=== PATIENT | male | born 1960 ===

== ENCOUNTER 2025-04-27 16:09 | Inpatient (IN) ==
--- NOTE | 2025-04-27 16:38 | Emergency Department Note ---
Impression & Plan Symptomatic bradycardia, Atrial fibrillation, new onset, Hypomagnesemia, Hypoglycemia ED Provider Note NAME: KYLAH HAMMOND AGE: 64 SEX: M : 1960 ARRIVES VIA: Ambulance INFORMANT: Patient, ED PROVIDER(S): Tc Salamanca DO CHIEF COMPLAINT: Dizziness HPI: The patient is a 64-year-old male who presented to the emergency department for an evaluation of dizziness. The patient states he has been having issues like this intermittently over the last several months. The patient was at his eye doctor today. He started having dizziness symptoms. He was found to be bradycardic and hypotensive. He was sent to the emergency department for further evaluation. The pupils were dilated prior to the patient developing the dizziness. The patient received proparacaine Mydriacyl and phenylephrine at 1504. ROS: See above HPI for pertinent positives & negatives. A total of 10 systems reviewed and were otherwise negative. PAST MEDICAL HISTORY: See Below PAST SURGICAL HISTORY: See Below FAMILY HISTORY: See Below SOCIAL HISTORY: See Below HOME MEDICATIONS: See Below ALLERGIES: See Below VITALS: See Below PHYSICAL EXAMINATION: GENERAL: Patient is awake alert in no acute distress patient is resting comfortably and showing no signs of anxiety EYES: The conjunctivae are clear. The pupils are round and reactive. EARS, NOSE, MOUTH AND THROAT: The nose is without any evidence of any deformity. Mucous membranes are moist. Tongue is midline. NECK: The neck is nontender and supple. RESPIRATORY: Normal respiratory effort is noted there is no evidence of wheezing rhonchi or rales CARDIOVASCULAR: Bradycardic and regular heart sounds were noted to auscultation. There is no definite murmur. GASTROINTESTINAL: The abdomen is soft. Abdomen is nontender. MUSCULOSKELETAL/EXTREMITIES: There is no evidence of gross deformity full range of motion is noted in the hips and shoulders. SKIN: There is no obvious evidence of any rash. There are no petechiae, pallor or cyanosis noted. NEUROLOGIC: Patient is awake alert and oriented x3 MEDICAL DECISION MAKING: The patient is a 64-year-old male who presented to the emergency department directly from his eye doctor's office for an evaluation of bradycardia and hypotension. The patient was found to be in atrial fibrillation. This would be a new diagnosis for the patient. I discussed the patient's laboratory and radiographic studies with him. He was treated with a small fluid bolus. He was reevaluated multiple times. I discussed his condition with the on-call [facility] hospitalist. I am concerned about the presence of the atrial fibrillation. He may require further workup as well as new medications started. The patient was agreeable with the plan. Triage Nursing notes reviewed. Prior medical records reviewed Vital Signs: reviewed and remarkable for no significant abnormalities Differential diagnosis: Benign positional vertigo, dehydration, hypovolemia, anemia, tumor, infection, hypoglycemia, electrolyte abnormalities, cardiac sources, intracerebral event, toxicologic, neurologic, as well as other pathologies. ER treatment provided: See below Diagnostics interpreted by me: ECG: EKG was obtained in the emergency department. My interpretation is atrial fibrillation at 63 bpm. There were no PVCs noted. There is no acute ST segment abnormalities noted. Nonspecific intraventricular conduction delay was noted. Cardiac Monitoring: An order was placed for continuous cardiac monitoring. The monitor shows a rate of 71 bpm with atrial fibrillation. Laboratory studies: As stated above and show below. Imaging studies: See below. Radiographic imaging was reviewed by myself Consultation(s): I discussed this case with Dr. Storey [facility]. Past Med/Surg History Problem List (Updated 04/27/25 @ 21:19 by Katia Browning PA-C) CARMEN (acute kidney injury) History of orthostatic hypotension Dizziness Lightheadedness Hypoglycemia (Acute) Hypomagnesemia (Acute) Atrial fibrillation, new onset (Acute) Symptomatic bradycardia (Acute) Medical History High cholesterol GERD (gastroesophageal reflux disease) Coronary artery disease Type 2 diabetes mellitus Hypertension Social History Smoking Status: Former smoker Preferred Language: Turkmen Feels Safe at Home: Yes Allergies Allergies Allergy/AdvReac Type Severity Reaction Status Date / Time peanut AdvReac Intermediate DIARRHEA--PEANUT Verified 04/27/25 18:29 CONTAINING DRUGS INCLUDED Home Meds Home Medications Medication Instructions Recorded Confirmed acetaminophen 500 mg tablet 500 mg PO QID PRN PAIN/FEVER 04/27/25 04/27/25 (Tylenol Extra Strength) albuterol sulfate 90 mcg/actuation 2 puff inhalation Q6H PRN 04/27/25 04/27/25 aerosol inhaler Shortness Of Breath Or Wheezing amlodipine 5 mg tablet 5 mg PO QAM 04/27/25 04/27/25 aspirin 81 mg tablet,delayed 81 mg PO DAILY 04/27/25 04/27/25 release atorvastatin 80 mg tablet 80 mg PO QAM 04/27/25 04/27/25 bupropion HCl 100 mg tablet,12 hr 100 mg PO BID 04/27/25 04/27/25 sustained-release cholecalciferol (vitamin D3) 50 50 mcg PO DAILY 04/27/25 04/27/25 mcg (2,000 unit) capsule (Vitamin D3) duloxetine 30 mg capsule,delayed 30 mg PO BID 04/27/25 04/27/25 release ferrous sulfate 325 mg (65 mg 325 mg PO Q OTHER DAY 04/27/25 04/27/25 iron) tablet gabapentin 300 mg capsule See Rx Instructions .Route .COMPLEX 04/27/25 04/27/25 insulin aspart U-100 100 unit/mL 8 unit subcut TIDM 04/27/25 04/27/25 (3 mL) subcutaneous pen insulin glargine 100 unit/mL (3 22 unit subcut QAM 04/27/25 04/27/25 mL) subcutaneous pen (Lantus Solostar U-100 Insulin) levothyroxine 25 mcg tablet 25 mcg PO DAILYBB 04/27/25 04/27/25 losartan 50 mg tablet 25 mg PO QAM 04/27/25 04/27/25 magnesium oxide 500 mg PO DAILY 04/27/25 04/27/25 metformin 500 mg tablet,extended 1,000 mg PO BID 04/27/25 04/27/25 release 24 hr multivitamin 1 tab PO DAILY 04/27/25 04/27/25 naphazo HCl 0.025 %-hyprome 0.2 1 drp OPB DIRECTED PRN Dry Eyes 04/27/25 04/27/25 %-ps 80 0.5 %-Zn sulf 0.25 % eye drops (Clear Eyes Complete) nitroglycerin 0.4 mg sublingual 0.4 mg sublingual DIRECTED PRN 04/27/25 04/27/25 tablet (Nitrostat) Chest Pain omeprazole 20 mg capsule,delayed 20 mg PO QAM 04/27/25 04/27/25 release tamsulosin 0.4 mg capsule 0.8 mg PO QAM 04/27/25 04/27/25 Results & Data (ED) Vital Signs Vital Signs - 24 hr 04/27/25 16:30 04/27/25 16:31 04/27/25 16:31 Temperature 36.7 C Temperature Source Oral Pulse Rate 73 55 L Respiratory Rate 12 16 Respiratory Depth Normal Blood Pressure 114/62 114/62 Blood Pressure Mean 75 79 Pulse Oximetry 97 98 98 Oxygen Delivery Method Room Air Room Air Oxygen Flow Rate 0 Sepsis Recent Fever Within 48 Hours No Sepsis New/Unexplained Change in Mental Status N/A Sepsis Action Taken by Nursing No Action Required 04/27/25 16:35 04/27/25 17:00 04/27/25 18:00 Temperature Temperature Source Pulse Rate 58 L 65 76 Respiratory Rate 22 Respiratory Depth Blood Pressure 131/72 128/76 Blood Pressure Mean 98 105 Pulse Oximetry 99 Oxygen Delivery Method Oxygen Flow Rate Sepsis Recent Fever Within 48 Hours Sepsis New/Unexplained Change in Mental Status Sepsis Action Taken by Nursing 04/27/25 18:30 04/27/25 19:00 04/27/25 19:30 Temperature Temperature Source Pulse Rate 75 83 82 Respiratory Rate 15 15 19 Respiratory Depth Blood Pressure 142/90 H 137/78 148/84 H Blood Pressure Mean 107 111 97 Pulse Oximetry 99 97 97 Oxygen Delivery Method Oxygen Flow Rate Sepsis Recent Fever Within 48 Hours Sepsis New/Unexplained Change in Mental Status Sepsis Action Taken by Nursing 04/27/25 20:30 04/27/25 20:40 Temperature Temperature Source Pulse Rate 70 71 Respiratory Rate 18 Respiratory Depth Blood Pressure 112/63 Blood Pressure Mean 96 Pulse Oximetry 97 Oxygen Delivery Method Oxygen Flow Rate Sepsis Recent Fever Within 48 Hours Sepsis New/Unexplained Change in Mental Status Sepsis Action Taken by [facility] Medications Current Medication List: was personally reviewed by me Laboratory Data Attestation: I reviewed the patient's lab results. 04/27/25 16:22 04/27/25 16:22 Lab Results 04/27/25 04/27/25 04/27/25 Range/Units 16:22 17:42 20:14 WBC 6.93 (4.8-10.8) K/ul RBC 4.03 L (4.70-6.10) M/uL Hgb 11.4 L (14.0-18.0) g/dl Hct 35.7 L (42.0-52.0) % MCV 88.6 (80.0-100.0) fL MCH 28.3 (25.0-34.0) pg MCHC 31.9 L (32.0-36.0) g/dL RDW Std Deviation 45.8 (36.4-46.3) fL RDW Coeff of Hodan 14.2 (11.5-14.5) % Plt Count 203 (130-400) K/uL MPV 10.1 (9.4-12.4) fL Immature Gran % (Auto) 0.1 % Neut % (Auto) 70.1 % Lymph % (Auto) 19.9 % [place] % (Auto) 7.6 % Eos % (Auto) 1.6 % Baso % (Auto) 0.7 % Neut # (Auto) 4.85 (1.40-6.50) K/uL Lymph # (Auto) 1.38 (1.20-3.40) K/uL [place] # (Auto) 0.53 (0.11-0.59) K/uL Eos # (Auto) 0.11 (0.00-0.50) K/uL Baso # (Auto) 0.05 (0.00-0.20) K/uL Immature Gran # (Auto) 0.01 (0.01-0.20) K/uL PT 11.2 (9.0-12.0) Seconds INR 1.0 (0.9-1.1) APTT 27 (21-31) Seconds PTT Ratio 1.0 Sodium 137 (136-145) mmol/L Potassium 5.1 (3.5-5.1) mmol/L Chloride 104 (98-107) mmol/L Carbon Dioxide 26 (21-32) mmol/L Anion Gap 7 (3-11) BUN 31 H (6-23) mg/dl Creatinine 1.61 H (0.6-1.4) mg/dl Est Cr Clr Drug Dosing 59.5 ml/min eGFR 47.16 BUN/Creatinine Ratio 19.3 (10-20) Glucose 80 (70-99(Fasting)) mg/dl POC Glucose 59 L* (70-99) mg/dl Calcium 8.4 L (8.6-10.3) mg/dl Magnesium 1.1 L (1.7-2.4) mg/dl Total Bilirubin 0.4 (0.2-1.0) mg/dl AST 10 L (13-39) U/L ALT 9 (7-52) U/L Alkaline Phosphatase 57 (34-104) U/L Troponin I High Sens 11.0 (0-20) pg/ml Total Protein 6.2 (6.0-8.3) gm/dl Albumin 4.0 (3.4-5.0) gm/dl Globulin 2.2 L (2.5-4.0) gm/dl Albumin/Globulin Ratio 1.8 (0.9-2) TSH 3.291 (0.300-4.500) uIu/ml Urine Color Yellow Urine Appearance Clear (Clear) Urine pH 5.5 (4.5-7.5) Ur Specific [place] 1.008 (1.000-1.030) Urine Protein Negative (Negative) Urine Glucose (UA) Negative (Negative) Urine Ketones Negative (Negative) Urine Blood Negative (Negative) Urine Nitrite Negative (Negative) Urine Bilirubin Negative (Negative) Urine Urobilinogen Negative (Negative) Ur Leukocyte Esterase Negative (Negative) Urine Comment Lyme Disease Screen Negative (Negative) 04/27/25 Range/Units 20:25 WBC (4.8-10.8) K/ul RBC (4.70-6.10) M/uL Hgb (14.0-18.0) g/dl Hct (42.0-52.0) % MCV (80.0-100.0) fL MCH (25.0-34.0) pg MCHC (32.0-36.0) g/dL RDW Std Deviation (36.4-46.3) fL RDW Coeff of Hodan (11.5-14.5) % Plt Count (130-400) K/uL MPV (9.4-12.4) fL Immature Gran % (Auto) % Neut % (Auto) % Lymph % (Auto) % [place] % (Auto) % Eos % (Auto) % Baso % (Auto) % Neut # (Auto) (1.40-6.50) K/uL Lymph # (Auto) (1.20-3.40) K/uL [place] # (Auto) (0.11-0.59) K/uL Eos # (Auto) (0.00-0.50) K/uL Baso # (Auto) (0.00-0.20) K/uL Immature Gran # (Auto) (0.01-0.20) K/uL PT (9.0-12.0) Seconds INR (0.9-1.1) APTT (21-31) Seconds PTT Ratio Sodium (136-145) mmol/L Potassium (3.5-5.1) mmol/L Chloride (98-107) mmol/L Carbon Dioxide (21-32) mmol/L Anion Gap (3-11) BUN (6-23) mg/dl Creatinine (0.6-1.4) mg/dl Est Cr Clr Drug Dosing ml/min eGFR BUN/Creatinine Ratio (10-20) Glucose (70-99(Fasting)) mg/dl POC Glucose 105 H (70-99) mg/dl Calcium (8.6-10.3) mg/dl Magnesium (1.7-2.4) mg/dl Total Bilirubin (0.2-1.0) mg/dl AST (13-39) U/L ALT (7-52) U/L Alkaline Phosphatase (34-104) U/L Troponin I High Sens (0-20) pg/ml Total Protein (6.0-8.3) gm/dl Albumin (3.4-5.0) gm/dl Globulin (2.5-4.0) gm/dl Albumin/Globulin Ratio (0.9-2) TSH (0.300-4.500) uIu/ml Urine Color Urine Appearance (Clear) Urine pH (4.5-7.5) Ur Specific [place] (1.000-1.030) Urine Protein (Negative) Urine Glucose (UA) (Negative) Urine Ketones (Negative) Urine Blood (Negative) Urine Nitrite (Negative) Urine Bilirubin (Negative) Urine Urobilinogen (Negative) Ur Leukocyte Esterase (Negative) Urine Comment Lyme Disease Screen (Negative) Administered Medications Dextrose/Sodium Chloride (D5w And Nss) 1,000 mls @ 80 mls/hr IV .[id number] GARO Stop: 04/30/25 18:29 Last Admin: 04/27/25 19:00 Dose: 80 mls/hr Documented By: ANT Discontinued Medications Magnesium Sulfate/Dextrose (Magnesium Sulfate / D5w) 1 gm in 100 mls @ 100 mls/hr IV Q1H GARO Stop: 04/27/25 19:42 Last Infusion: 04/27/25 19:54 Dose: Infused Documented By: Admin: 04/27/25 18:48 Dose: 100 mls/hr Documented By: Infusion: 04/27/25 18:48 Dose: Infused Documented By: Admin: 04/27/25 17:52 Dose: 100 mls/hr Documented By: FRANKLYN Sodium Chloride (Nss) 500 mls @ 999 mls/hr IV .Q31M ONE Stop: 04/27/25 18:13 Last Infusion: 04/27/25 18:20 Dose: Infused Documented By: Admin: 04/27/25 17:52 Dose: 999 mls/hr Documented By: FRANKLYN Magnesium Oxide (Magnesium Oxide 400 Mg Tab) 400 mg PO NOW STA Stop: 04/27/25 18:16 Last Admin: 04/27/25 18:48 Dose: 400 mg Documented By: ANT Imaging Data Attestation: I personally reviewed and interpreted this imaging study as follows: My Impression: 1 view chest x-ray was obtained in the emergency department. My interpretation is no free air or definite infiltrate, final report below. Radiologist's Impression: Chest X-Ray 04/27/25 16:14 Clinical History: Chest pain Technique: A frontal view of the chest was obtained Findings: There are no confluent pulmonary infiltrates. The heart size is within normal limits. No pleural effusion or pneumothorax is seen. There is no definite pulmonary nodule. No fracture is noted. Sternal wires are present Impression: No active disease Electronically signed by Rory Castrejon 04-27-2025 4:[address] 04/27/25 19:18 Exam(s): CT HEAD Without Contrast EXAM: CT Head Without Intravenous Contrast CLINICAL HISTORY: Reason for exam: Recent head strike, r/o bleed prior to starting AC. TECHNIQUE: Axial computed tomography images of the head/brain without intravenous contrast. CTDI is 36.18 mGy and DLP is 624.41 mGy-cm. Automated exposure control was utilized for the study. A dose lowering technique was utilized adhering to the principles of ALARA. COMPARISON: No relevant prior studies available. FINDINGS: Brain: No hemorrhage, extra-axial fluid collection, mass effect, or edema. Ventricles: Unremarkable. Bones/joints: Unremarkable. No fracture. Soft tissues: Unremarkable. Sinuses: No acute sinusitis. Mastoid air cells: Unremarkable as visualized. IMPRESSION: 1. No acute intracranial abnormality. Electronically signed by: Thanh Turpin MD 04/27/25 21:07 PM Discharge Plan Visit Data Chief Complaint: Cardiac Assessment ED Provider: Tc Salamanca Discharge Problem: Symptomatic bradycardia, Atrial fibrillation, new onset, Hypomagnesemia, Hypoglycemia Patient Disposition: Being Evaluated by Hospitalist Condition: Fair Discharge Instructions Interventions: ED Discharge Assessment Last Done: 04/27/25 21:42
[2025-04-27 16:42] LABS: Hematocrit (blood only) 35.7 % (42.0-52.0); Hemoglobin 11.4 g/dl (14.0-18.0); Immature Granulocytes # (auto) 0.01 K/uL (0.01-0.20); Immature Granulocytes % (auto) 0.1 %; Mean Corpuscular Hemoglobin 28.3 pg (25.0-34.0); Mean Corpuscular Volume 88.6 fL (80.0-100.0); Platelet Count 203 K/uL (130-400); RDW Standard Deviation 45.8 fL (36.4-46.3); Red Blood Count 4.03 M/uL (4.70-6.10); White Blood Count 6.93 K/ul (4.8-10.8)
--- NOTE | 2025-04-27 16:57 | XRay Report ---
Clinical History: Chest pain Technique: A frontal view of the chest was obtained Findings: There are no confluent pulmonary infiltrates. The heart size is within normal limits. No pleural effusion or pneumothorax is seen. There is no definite pulmonary nodule. No fracture is noted. Sternal wires are present Impression: No active disease Electronically signed by Rory Castrejon 04-27-2025 4:55 PM
[2025-04-27 16:58] LABS: Alanine Aminotransferase 9.0 U/L (7-52); Albumin Globulin Ratio 1.8 (0.9-2); Alkaline Phosphatase 57.0 U/L (34-104); Anion Gap 7.0 (3-11); Bilirubin,Total 0.4 mg/dl (0.2-1.0); Blood Urea Nitrogen 31.0 mg/dl (6-23); Calcium 8.4 mg/dl (8.6-10.3); Carbon Dioxide 26.0 mmol/L (21-32); Chloride 104.0 mmol/L (98-107); Creatinine Clr Calc Pharmacy 59.5 ml/min; Globulin 2.2 gm/dl (2.5-4.0); Glucose 80.0 mg/dl (70-99(Fasting)); Magnesium 1.1 mg/dl (1.7-2.4); Potassium 5.1 mmol/L (3.5-5.1); Sodium 137.0 mmol/L (136-145); Total Protein 6.2 gm/dl (6.0-8.3)
[2025-04-27 17:14] LABS: Thyroid Stimulating Hormone 3.291 uIu/ml (0.300-4.500)
[2025-04-27 17:15] LABS: INR 1.0 (0.9-1.1); Partial Thromboplastin Time 27 Seconds (21-31); Prothrombin Time 11.2 Seconds (9.0-12.0)
[2025-04-27] MEDS: SODIUM CHLORIDE 0.9% 500 ML IV ONE (17:52)
[2025-04-27] MEDS: MAGNESIUM SULFATE / D5W 1 GM/100 ML BAG IV SCH (17:52)
--- NOTE | 2025-04-27 18:32 | History & Physical Report ---
Date of Service April 27, 2025 Assessment & Plan (1) Lightheadedness: (2) Dizziness: (3) History of orthostatic hypotension: (4) Atrial fibrillation, new onset: (5) CARMEN (acute kidney injury): (6) Hypomagnesemia: (7) Hypoglycemia: Plan Patient is a 64-year-old male with past medical history significant for severe CAD s/p CABG x 5 (Rangel-LAD, Ao-OM1-OM2, Ao-PDA, Ao-Ramus) in March 2017, HLD, HTN, orthostatic hypotension, symptomatic bradycardia, sinus node dysfunction, obesity, type II DM with diabetic nephropathy, diabetic proliferative retinopathy and macular edema both eyes, hypothyroidism, GERD, BPH, cerebral atrophy, depression/CHANTEL, history of osteomyelitis, history of left lesser toe amputation and other problems as outlined below who presented to the ED via EMS with complaint of lightheadedness and dizziness after his BP was discovered to be 86/52 during his outpatient ophthalmology appointment earlier today. BP checked at the office: 86/52 in the R arm, 73/55 in the L arm. BP improving to 140s/80s in ED s/p IVF; lightheadedness/dizziness also improving. Notable history of orthostatic hypotension. Follows with [facility]; outlined BP goal <150/90 per cards visit in 04/2024. #Lightheadedness and dizziness --> notably upon standing #History of orthostatic hypotension Took BP meds this AM including losartan 25mg and amlodipine 5mg ? if sx primarily stemming from/result of orthostasis Unknown how long pt has been in afib --> may be contributing to sx as well Check orthostatics, TTE pending -Could also consider b/l carotid doppler US given significant CAD hx --> will hold off for now Hold home antihypertensives for now; routine BP monitoring Fall precautions #New-onset atrial fibrillation Remains rate-controlled; [id number] score = [address] obtained prior to beginning IV heparin given recent fall w/ head strike 2wks ago --> head CT negative Will initiate IV low-dose heparin drip for now Monitor on telemetry; PRN IV Lopressor 5mg Q4H for HR>110, TTE pending as per above Appreciate cardiology consult #CARMEN on suspected underlying CKD stage II/III #Diabetic nephropathy Cr 1.61 on admission, eGFR 47 Baseline Cr 1.3-1.4 since 05/2024 per OP chart review Suspect related to poor po intake, recent diarrheal illness (resolved a few days ago) IVF onboard --> continue to monitor; if no improvement, consider nephro consult #Hypomagnesemia Mag 1.1 upon arrival Repleted via 2 bags IV mag in ED; oral supplementation started as well Repeat mag level pending --> continue to monitor, replete PRN #Hypoglycemia #DM type II BSG 59 upon arrival to ED ? could have been contributing to sx as well BSG improving w/ IV D5w/NSS --> continue to closely monitor Hold home regimen; basal/bolus reg while inpt Appreciate glycemic pharm consult for assistance w/ insulin management BSG checks ACH[employer] school vocational educator consult, re: review BSG monitoring, ? changes to insulin reg given hypoglycemic event/diet changes Hgb A1c 6% 4mo ago --> update in AM #HLD #CAD s/p CABG x 5 (Rangel-LAD, Ao-OM1-OM2, Ao-PDA, Ao-Ramus) in March 2017 Continue statin, ASA #Depression Continue Wellbutrin, Cymbalta #Chronic anemia Baseline Hgb 10-12; Hgb stable on admission Continue to monitor #Hypothyroidism TSH WNL Continue levothyroxine #GERD Continue PPI #BPH Continue Flomax DVT Prophylaxis: IV Heparin Disposition: Admit to PCU Patient seen in collaboration with Dr. Storey. Please see addendum. I spent a total of 68 minutes coordinating, documenting, and providing care for this patient excluding time spent in the performance of separately billed services or time spent by another provider/QHP. This included personally reviewing all current laboratories and imaging studies, medical reconciliation, outpatient chart review and discussion with specialists. This chart was completed in part utilizing Speech Voice Recognition Software. Grammatical errors, random word insertions, pronoun errors, and incomplete sentences are an occasional consequence of this system due to software limitations, ambient noise, and hardware issues. Any formal questions or concerns about the content, text, or information contained within the body of this dictation should be directly addressed to the provider for clarification. History of Present Illness Chief Complaint: Lightheadedness/dizziness, hypotension Primary Care Provider: Sha Andersen MD Patient is a 64-year-old male with past medical history significant for severe CAD s/p CABG x 5 (Rangel-LAD, Ao-OM1-OM2, Ao-PDA, Ao-Ramus) in March 2017, HLD, HTN, orthostatic hypotension, symptomatic bradycardia, sinus node dysfunction, obesity, type II DM with diabetic nephropathy, diabetic proliferative retinopathy and macular edema both eyes, hypothyroidism, chronic rhinitis, mucous retention cyst of maxillary sinus, GERD, BPH, cerebral atrophy, history of left lesser toe amputation, depression/CHANTEL, history of osteomyelitis and other problems as outlined below who presented to the ED via EMS with complaint of lightheadedness and dizziness after his BP was discovered to be 86/52 during his outpatient ophthalmology appointment earlier today. History obtained from the patient, discussion with ED provider and associated chart review. Patient seen at bedside with Dr. Storey. Patient endorses feeling well up until this afternoon at his ophthalmology appointment. He describes feeling lightheaded and dizzy upon getting out of his car at the appointment. He had his BP checked at the office and it was notably low at 86/52 in the right arm and 73/55 in the left arm. He does mention proceeding with his eye exam and having his pupils dilated; however, his symptoms did not resolve therefore a call was placed to his PCP's office whom subsequently referred him to the ED. States his lightheadedness and dizziness is improving with rest in the ED. He admits to actually experiencing some lightheadedness and dizziness for the past 2 days, worse with standing. He reports a fall approximately 2 weeks ago where he struck his head off of a stone flower bed. No reported LOC; states he tripped over something in his yard. Patient was not evaluated in any medical facilities following this event. He reports having some diarrhea a few days ago however this is now resolved. Denies any cough, congestion, fevers, SOB, chest pain, abdominal pain or urinary/bowel habit changes. He mentions he typically does not eat much in the morning or afternoon and that the majority of his heavier meals are later in the evening. He administered his long-acting insulin this morning. Admits to not taking any short-acting insulin today. States he only ate a couple crackers prior to his ophthalmology appointment and nothing else today. He took all of his medications this morning, including his antihypertensives - losartan 25mg and amlodipine 5mg. Follows with [facility] cardiology - primary mobility architect manager is Dr. Quijano. Significant history of CAD s/p CABG x 5. Also history of orthostatic hypotension previously requiring frequent changes in his antihypertensive regimen. Allergies Allergy/AdvReac Type Severity Reaction Status Date / Time peanut AdvReac Intermediate DIARRHEA--PEANUT Verified 04/27/25 18:29 CONTAINING DRUGS INCLUDED Home Medications Medication Instructions Recorded Confirmed Type acetaminophen 500 mg tablet 500 mg PO QID PRN PAIN/FEVER 04/27/25 04/27/25 History (Tylenol Extra Strength) albuterol sulfate 90 mcg/actuation 2 puff inhalation Q6H PRN 04/27/25 04/27/25 History aerosol inhaler Shortness Of Breath Or Wheezing amlodipine 5 mg tablet 5 mg PO QAM 04/27/25 04/27/25 History aspirin 81 mg tablet,delayed 81 mg PO DAILY 04/27/25 04/27/25 History release atorvastatin 80 mg tablet 80 mg PO QAM 04/27/25 04/27/25 History bupropion HCl 100 mg tablet,12 hr 100 mg PO BID 04/27/25 04/27/25 History sustained-release cholecalciferol (vitamin D3) 50 50 mcg PO DAILY 04/27/25 04/27/25 History mcg (2,000 unit) capsule (Vitamin D3) duloxetine 30 mg capsule,delayed 30 mg PO BID 04/27/25 04/27/25 History release ferrous sulfate 325 mg (65 mg 325 mg PO Q OTHER DAY 04/27/25 04/27/25 History iron) tablet gabapentin 300 mg capsule See Rx Instructions .Route .COMPLEX 04/27/25 04/27/25 History insulin aspart U-100 100 unit/mL 8 unit subcut TIDM 04/27/25 04/27/25 History (3 mL) subcutaneous pen insulin glargine 100 unit/mL (3 22 unit subcut QAM 04/27/25 04/27/25 History mL) subcutaneous pen (Lantus Solostar U-100 Insulin) levothyroxine 25 mcg tablet 25 mcg PO DAILYBB 04/27/25 04/27/25 History losartan 50 mg tablet 25 mg PO QAM 04/27/25 04/27/25 History magnesium oxide 500 mg PO DAILY 04/27/25 04/27/25 History metformin 500 mg tablet,extended 1,000 mg PO BID 04/27/25 04/27/25 History release 24 hr multivitamin 1 tab PO DAILY 04/27/25 04/27/25 History naphazo HCl 0.025 %-hyprome 0.2 1 drp OPB DIRECTED PRN Dry Eyes 04/27/25 04/27/25 History %-ps 80 0.5 %-Zn sulf 0.25 % eye drops (Clear Eyes Complete) nitroglycerin 0.4 mg sublingual 0.4 mg sublingual DIRECTED PRN 04/27/25 04/27/25 History tablet (Nitrostat) Chest Pain omeprazole 20 mg capsule,delayed 20 mg PO QAM 04/27/25 04/27/25 History release tamsulosin 0.4 mg capsule 0.8 mg PO QAM 04/27/25 04/27/25 History Past Med/Surg History Problem List (Updated 04/27/25 @ 21:19 by Katia Browning PA-C) CARMEN (acute kidney injury) History of orthostatic hypotension Dizziness Lightheadedness Hypoglycemia (Acute) Hypomagnesemia (Acute) Atrial fibrillation, new onset (Acute) Symptomatic bradycardia (Acute) Medical History High cholesterol GERD (gastroesophageal reflux disease) Coronary artery disease Type 2 diabetes mellitus Hypertension Social History Smoking Status: Former smoker Second Hand Exposure: No; Do You Dip or Chew Tobacco: No; Tobacco Cessation Education Requested by Patient: No Hx Alcohol Use: No Hx Substance Use: No Preferred Language: Sami Doper Operator Required: No Beliefs That Will Affect Care: None Current Living Situation: Alone Other Information That Helps Us Care for You: No Feels Safe at Home: Yes Assistive Devices: None Review of Systems Review of Systems: At least ten systems reviewed and negative, except as noted in the HPI. Physical Exam Physical Exam: Please refer to Dr. Storey's addendum for physical examination findings. Results & Data Results & Data Vital Signs (Past 12 Hours) Vital Signs Temp Pulse Resp BP Pulse Ox O2 Del Method O2 Flow Rate 04/27/25 16:35 58 L 04/27/25 16:31 98 Room Air 0 04/27/25 16:31 36.7 C 55 L 16 114/62 98 Room Air 04/27/25 16:30 73 12 114/62 97 Laboratory Results Short CBC 04/27/25 Range/Units 16:22 WBC 6.93 (4.8-10.8) K/ul Hgb 11.4 L (14.0-18.0) g/dl Hct 35.7 L (42.0-52.0) % Plt Count 203 (130-400) K/uL BMP 04/27/25 16:22 Sodium 137 Potassium 5.1 Chloride 104 Carbon Dioxide 26 BUN 31 H Creatinine 1.61 H Glucose 80 Calcium 8.4 L Liver Function 04/27/25 Range/Units 16:22 Total Bilirubin 0.4 (0.2-1.0) mg/dl AST 10 L (13-39) U/L ALT 9 (7-52) U/L Alkaline Phosphatase 57 (34-104) U/L Albumin 4.0 (3.4-5.0) gm/dl Diagnostic Findings Chest X-Ray 04/27/25 16:14 Clinical History: Chest pain Technique: A frontal view of the chest was obtained Findings: There are no confluent pulmonary infiltrates. The heart size is within normal limits. No pleural effusion or pneumothorax is seen. There is no definite pulmonary nodule. No fracture is noted. Sternal wires are present Impression: No active disease Electronically signed by Rory Castrejon 04-27-2025 4:55 PM Medications Administered Magnesium Sulfate/Dextrose (Magnesium Sulfate / D5w) 1 gm in 100 mls @ 100 mls/hr IV Q1H GARO Stop: 04/27/25 19:42 Last Admin: 04/27/25 17:52 Dose: 100 mls/hr Documented By: FRANKLYN Discontinued Medications Sodium Chloride (Nss) 500 mls @ 999 mls/hr IV .Q31M ONE Stop: 04/27/25 18:13 Last Infusion: 04/27/25 18:20 Dose: Infused Documented By: Admin: 04/27/25 17:52 Dose: 999 mls/hr Documented By: FRANKLYN Code Status & VTE Plan Code Status FULL CODE Supervising Physician Co-Signing Physician Notes Attending Addendum: Case reviewed with the advanced practitioner. I have personally performed a history and physical examination on the patient. I have reviewed the advanced practitioner's documentation on the date of service referenced in note, and I agree with, and take responsibility for the plan of care. please refer to her notes for full details patient seen and examined, records reviewed by myself as well on exam, patient seen resting in bed, comfortable, not in distress reports dizziness when upright otherwise, no chest pain, palpitations, shortness of breath, focal neuro symptoms no fever/chills no other symptoms VS noted and reviewed oriented x3, not in distress, speaks in sentences with no effort nor accessory muscle use normal rate, irregularly regular rhythm, no murmurs clear breath sounds bilaterally non distended, soft, nontender no bipedal edema, erythema, warmth no neuro deficits all labs, imaging noted and reviewed ASSESSMENT AND PLAN> NEW ONSET ATRIAL FIBRILLATION HISTORY OF CAD, CABG HISTORY OF SYMPTOMATIC BRADYCARDIA EKG Afib HR 80s check CT head in light of recent fall, if negative for bleed, start IV Heparin (CHADSVASC score elevated) hold off on Beta tito as HR controlled Cardiology consulted EPISODE OF HYPOTENSION history of orthostasis patient on the dry side, Crea mildly elevated IV fluids Ortho VS other diagnoses and plan of care as per advanced practitioner's notes I spent a total of 35 minutes coordinating, documenting, and providing care for this patient, excluding time spent in the performance of separately billed services or time spent by another provider/QHP. Johnson Storey MD
[2025-04-27] MEDS: MAGNESIUM OXIDE 400 MG TAB PO STA (18:48)
[2025-04-27] MEDS: D5W AND NSS 1,000 ML IV SCH (19:00)
[2025-04-27 20:35] LABS: Appearance Urine Clear (Clear); Glucose Urine UA Negative (Negative)
[2025-04-27] MEDS ORDERED: GLUCOSE 40% GEL 15 GM TUBE PO PRN (20:49)
[2025-04-27] MEDS ORDERED: PHARMACY GLYCEMIC MGMT CONSULT PRN (20:49)
[2025-04-27] MEDS ORDERED: GLUCOSE 10 TAB/TUBE PO PRN (20:49)
[2025-04-27] MEDS ORDERED: DEXTROSE 50% 50 ML SYRINGE IV PRN (20:49)
[2025-04-27] MEDS ORDERED: CARBOHYDRATES FOR HYPOGLYCEMIA PO PRN (20:49)
[2025-04-27] MEDS ORDERED: GLUCAGON FOR INJ 1 MG VIAL SQ PRN (20:49)
--- NOTE | 2025-04-27 21:08 | CT Scan Report ---
Exam(s): CT HEAD Without Contrast EXAM: CT Head Without Intravenous Contrast CLINICAL HISTORY: Reason for exam: Recent head strike, r/o bleed prior to starting AC. TECHNIQUE: Axial computed tomography images of the head/brain without intravenous contrast. CTDI is 36.18 mGy and DLP is 624.41 mGy-cm. Automated exposure control was utilized for the study. A dose lowering technique was utilized adhering to the principles of ALARA. COMPARISON: No relevant prior studies available. FINDINGS: Brain: No hemorrhage, extra-axial fluid collection, mass effect, or edema. Ventricles: Unremarkable. Bones/joints: Unremarkable. No fracture. Soft tissues: Unremarkable. Sinuses: No acute sinusitis. Mastoid air cells: Unremarkable as visualized. IMPRESSION: 1. No acute intracranial abnormality. Electronically signed by: Thanh Turpin MD 04/27/25 21:07 PM
[2025-04-27] MEDS ORDERED: METOPROLOL TARTRATE 1 MG/ML VIAL IV PRN (21:25)
[2025-04-27] MEDS ORDERED: MAGNESIUM HYDROXIDE SUSP 30 ML UDC PO PRN (21:55)
[2025-04-27] MEDS ORDERED: ONDANSETRON INJ 2 MG/ML 2 ML VIAL IV PRN (21:55)
[2025-04-27] MEDS ORDERED: POLYETHYLENE (MIRALAX) 17 GM PACK PO PRN (21:55)
[2025-04-27] MEDS: HEPARIN 25000 UNIT/500 ML D5W 25,000 UNITS/500 ML BAG IV SCH (22:33)
[2025-04-27] MEDS: INSULIN ASPART PER UNIT CHARGE SC SCH (22:47)
[2025-04-27] MEDS: GABAPENTIN 300 MG CAP PO SCH (23:29)
[2025-04-28] MEDS: LEVOTHYROXINE SODIUM 25 MCG TABLET PO SCH (05:50)
[2025-04-28 05:56] LABS: Hematocrit (blood only) 33.8 % (42.0-52.0); Hemoglobin 10.9 g/dl (14.0-18.0); Immature Granulocytes # (auto) 0.01 K/uL (0.01-0.20); Immature Granulocytes % (auto) 0.2 %; Mean Corpuscular Hemoglobin 28.5 pg (25.0-34.0); Mean Corpuscular Volume 88.3 fL (80.0-100.0); Platelet Count 185 K/uL (130-400); RDW Standard Deviation 45.1 fL (36.4-46.3); Red Blood Count 3.83 M/uL (4.70-6.10); White Blood Count 6.55 K/ul (4.8-10.8)
[2025-04-28 06:18] LABS: Alanine Aminotransferase 8.0 U/L (7-52); Albumin Globulin Ratio 1.8 (0.9-2); Alkaline Phosphatase 59.0 U/L (34-104); Anion Gap 5.0 (3-11); Bilirubin,Total 0.3 mg/dl (0.2-1.0); Blood Urea Nitrogen 28.0 mg/dl (6-23); Calcium 8.2 mg/dl (8.6-10.3); Carbon Dioxide 26.0 mmol/L (21-32); Chloride 108.0 mmol/L (98-107); Creatinine Clr Calc Pharmacy 77.8 ml/min; Globulin 2.0 gm/dl (2.5-4.0); Glucose 134.0 mg/dl (70-99(Fasting)); Magnesium 1.5 mg/dl (1.7-2.4); Potassium 4.5 mmol/L (3.5-5.1); Sodium 139.0 mmol/L (136-145); Total Protein 5.6 gm/dl (6.0-8.3)
[2025-04-28 06:25] LABS: ANTI-Xa, UFH(UnfractionatedHep 0.23 IU/ml (0.3-0.7)
[2025-04-28 08:05] LABS: Hemoglobin A1C 6.4 % (4.5-5.6)
--- NOTE | 2025-04-28 08:08 | Cardiology Consultation ---
Date of Consultation April 28, 2025 Assessment & Plan (1) Atrial fibrillation, new onset: (2) ASCVD (arteriosclerotic cardiovascular disease): (3) S/P CABG x 5: (4) Dyslipidemia, goal LDL below 70: (5) Orthostatic hypotension: Supervising Physician Co-Signing Physician Notes Attending Staff: Patient seen and examined with AP Staff Concur with observations and plans I take responsibility for the care of the patient 64 yo man presenting with dizziness and lightheadedness Saw opthalmologist - 86/52 in office Sent into ED ECHO - LVEF 60%, Small Inferior WMA, LA enlargement, no major valvular disease, no effusion, RV size and function - normal Consult - new onset Afib Telemetry - Afib - ventricular rate - 60-80's Not on AV sarahi blockers or Anticoagulation as an outpt Was on Losartan 50 (1) and Amlodipine 5 (1) as an outpt + Flomax No documented fever; normal WBC Anemia - HgB 10.9 (chronic) - no acute blood loss No new meds Rx with IV NS 500 x 1 + Magnesium + Started on Heparin CXR - S/P CABG - no CHF, cardiomegaly CT Head - no acute intracranial abnormality CARMEN on presentation (Creat 1.6 on presentation/ 1.3 normally) Hx: * Multivessel CAD * S/P CABG x 5 () * DM - Retinopathy, nephropathy, neuropathy Plans: * Afib - newly recognized * Rate - controlled * Suspect patient may need pacer if restored to NSR * Outpatient [facility] * Anticoagulation - DOAC * Apixiban 5 mg po BID * k+ goal 4.5-5 * Mag goal >2 * Check TSH * Hypotension appears to be secondary to hypovolemia (Sweating secondary to hot ambient temps + diarrhea + decreased PO intake) * Hx of Falls - PT/OT evaluation - cane? walker? * Plans to follow up with Dr Quijano at [facility] - [facility] * Please call back with any additional questions * 60 min spent addressing challenges, educating and advancing daily plan of care William Dickinson History of Present Illness Reason for Consultation: New onset atrial fibrillation Requesting Physician: [facility] Hospitalist Service, Katia Browning PA-C Attending Physician: [facility] Hospitalist Service, Dr. Bette Ga MD History of Present Illness As per admission H&P, patient has been experiencing lightheadedness and dizziness for the past couple of days. Marked hypotension observed, 86/52 at an eye exam at which time pupils were dilated. Due to ongoing symptoms patient was referred to the ER. Problem List ASCVD. [place] post CAB[place]5 [place] [facility] [place], reverse SVG to ramus, SVG to OM1 and OM2 sequential, SVG to PDA. Type II diabetes mellitus with retinopathy, neuropathy, and nephropathy, history of osteomyelitis Hypertension Dyslipidemia Obesity Orthostatic hypotension Symptomatic bradycardia, sinus node dysfunction Obesity Hypothyroidism Chronic anemia GERD BPH Cerebral atrophy Depression/CHANTEL Allergies Allergy/AdvReac Type Severity Reaction Status Date / Time peanut AdvReac Intermediate DIARRHEA--PEANUT Verified 04/28/25 07:55 CONTAINING DRUGS INCLUDED Home Medications Medication Instructions Recorded Confirmed Type acetaminophen 500 mg tablet 1,000 mg PO Q6H PRN Pain 01/13/19 01/13/19 History amlodipine 5 mg tablet 5 mg PO QAM 01/13/19 01/13/19 History aspirin 81 mg tablet,delayed 81 mg PO QPM 01/13/19 01/13/19 History release (Stacey Low Dose Aspirin) atorvastatin 80 mg tablet 80 mg PO PM 01/13/19 01/13/19 History carvedilol 25 mg tablet 25 mg PO BID 01/13/19 01/13/19 History chlorpheniramine maleate 4 mg 4 mg PO Q6H PRN allergies 01/13/19 01/13/19 History tablet (Chlor-Trimeton) duloxetine 30 mg capsule,delayed 30 mg PO QAM 01/13/19 01/13/19 History release fluticasone propionate 50 2 spray intranasal QA 01/13/19 01/13/19 History mcg/actuation nasal spray,suspension (Flonase Allergy Relief) gabapentin 300 mg capsule 600 mg PO BID 01/13/19 01/13/19 History hydrochlorothiazide 25 mg tablet 25 mg PO QAM 01/13/19 01/13/19 History insulin aspart U-100 100 unit/mL 12 unit subcut TIDM 01/13/19 01/13/19 History (3 mL) subcutaneous pen (Novolog FlexPen U-100 Insulin aspart) insulin glargine U-300 conc 300 30 unit subcut QAM 01/13/19 01/13/19 History unit/mL (3 mL) subcutaneous pen (Toujeo Max U-300 SoloStar) losartan 50 mg tablet 50 mg PO BID 01/13/19 01/13/19 History magnesium oxide 400 mg (241.3 mg 400 mg PO QPM 01/13/19 01/13/19 History magnesium) tablet metformin 500 mg tablet,extended 1,000 mg PO BID 01/13/19 01/13/19 History release 24hr (osmotic) multivitamin 1 tab PO QAM 01/13/19 01/13/19 History ranitidine HCl 150 mg tablet 150 mg PO BID 01/13/19 01/13/19 History sertraline 100 mg tablet 100 mg PO QAM 01/13/19 01/13/19 History tamsulosin 0.4 mg capsule 0.4 mg PO QPM 01/13/19 01/13/19 History acetaminophen 500 mg tablet 500 mg PO QID PRN PAIN/FEVER 04/27/25 04/27/25 History (Tylenol Extra Strength) albuterol sulfate 90 mcg/actuation 2 puff inhalation Q6H PRN 04/27/25 04/27/25 History aerosol inhaler Shortness Of Breath Or Wheezing amlodipine 5 mg tablet 5 mg PO QAM 04/27/25 04/27/25 History aspirin 81 mg tablet,delayed 81 mg PO DAILY 04/27/25 04/27/25 History release atorvastatin 80 mg tablet 80 mg PO QAM 04/27/25 04/27/25 History bupropion HCl 100 mg tablet,12 hr 100 mg PO BID 04/27/25 04/27/25 History sustained-release cholecalciferol (vitamin D3) 50 50 mcg PO DAILY 04/27/25 04/27/25 History mcg (2,000 unit) capsule (Vitamin D3) duloxetine 30 mg capsule,delayed 30 mg PO BID 04/27/25 04/27/25 History release ferrous sulfate 325 mg (65 mg 325 mg PO Q OTHER DAY 04/27/25 04/27/25 History iron) tablet gabapentin 300 mg capsule See Rx Instructions .Route .COMPLEX 04/27/25 04/27/25 History insulin aspart U-100 100 unit/mL 8 unit subcut TIDM 04/27/25 04/27/25 History (3 mL) subcutaneous pen insulin glargine 100 unit/mL (3 22 unit subcut QAM 04/27/25 04/27/25 History mL) subcutaneous pen (Lantus Solostar U-100 Insulin) levothyroxine 25 mcg tablet 25 mcg PO DAILYBB 04/27/25 04/27/25 History losartan 50 mg tablet 25 mg PO QAM 04/27/25 04/27/25 History magnesium oxide 500 mg PO DAILY 04/27/25 04/27/25 History metformin 500 mg tablet,extended 1,000 mg PO BID 04/27/25 04/27/25 History release 24 hr multivitamin 1 tab PO DAILY 04/27/25 04/27/25 History naphazo HCl 0.025 %-hyprome 0.2 1 drp OPB DIRECTED PRN Dry Eyes 04/27/25 04/27/25 History %-ps 80 0.5 %-Zn sulf 0.25 % eye drops (Clear Eyes Complete) nitroglycerin 0.4 mg sublingual 0.4 mg sublingual DIRECTED PRN 04/27/25 04/27/25 History tablet (Nitrostat) Chest Pain omeprazole 20 mg capsule,delayed 20 mg PO QAM 04/27/25 04/27/25 History release tamsulosin 0.4 mg capsule 0.8 mg PO QAM 04/27/25 04/27/25 History Patient History Medical History High cholesterol GERD (gastroesophageal reflux disease) Coronary artery disease Type 2 diabetes mellitus Hypertension Diabetic neuropathy pain in both feet and hands Rheumatoid arthritis BPH (benign prostatic hyperplasia) GERD (gastroesophageal reflux disease) Diabetes mellitus, type 2 Hearing deficit Diabetic retinopathy Depression Anxiety Hx of myocardial infarction patient states he was told that - but not aware Hypertension Hyperlipidemia Environmental allergies Seasonal allergies Surgical History History of partial amputation of toe as child History of tonsillectomy Hx of heart bypass surgery x5 vessels - [facility] - 03/2017 Family History Father Family history of diabetes mellitus Sister Family history of diabetes mellitus Mother Family history of diabetes mellitus Social History Smoking Status: Former smoker Second Hand Exposure: No; Do You Dip or Chew Tobacco: No; Tobacco Cessation Education Requested by Patient: No Hx Alcohol Use: No Hx Substance Use: No Preferred Language: Cameroonian Communication Ability: [employer] Required: No Beliefs That Will Affect Care: None Current Living Situation: Alone Other Information That Helps Us Care for You: No Feels Safe at Home: Yes Assistive Devices: None Review of Systems Review of Systems: Complete Review of Systems is as stated above, negative, or noncontributory. Physical Exam Physical Exam: Overweight No elevation in JVP S1S2 Soft 2/6 Systolic Murmur CTA B No C/C/E Toe amputations Results & Data Vital Signs (Past 12 Hours) Vital Signs Temp Pulse Pulse Resp BP BP Pulse Ox 04/28/25 01:36 36.5 C 76 18 123/68 96 04/27/25 22:52 70 04/27/25 22:00 36.4 C L 85 18 140/75 96 04/27/25 21:42 04/27/25 20:40 71 04/27/25 20:30 70 18 112/63 97 O2 Del Method 04/28/25 01:36 Room Air 04/27/25 22:52 04/27/25 22:00 Room Air 04/27/25 21:42 Room Air 04/27/25 20:40 04/27/25 20:30 Laboratory Results Cardiac Enzymes 04/27/25 04/28/25 Range/Units 16:22 05:32 AST 10 L 10 L (13-39) U/L Troponin I High Sens 11.0 (0-20) pg/ml Coagulation 04/27/25 Range/Units 16:22 PT 11.2 (9.0-12.0) Seconds APTT 27 (21-31) Seconds CBC 04/27/25 04/28/25 Range/Units 16:22 05:32 WBC 6.93 6.55 (4.8-10.8) K/ul RBC 4.03 L 3.83 L (4.70-6.10) M/uL Hgb 11.4 L 10.9 L (14.0-18.0) g/dl Hct 35.7 L 33.8 L (42.0-52.0) % Plt Count 203 185 (130-400) K/uL Neut # (Auto) 4.85 4.06 (1.40-6.50) K/uL Lymph # (Auto) 1.38 1.80 (1.20-3.40) K/uL [place] # (Auto) 0.53 0.49 (0.11-0.59) K/uL Eos # (Auto) 0.11 0.15 (0.00-0.50) K/uL Baso # (Auto) 0.05 0.04 (0.00-0.20) K/uL Comprehensive Metabolic Panel 04/27/25 04/28/25 Range/Units 16:22 05:32 Sodium 137 139 (136-145) mmol/L Potassium 5.1 4.5 (3.5-5.1) mmol/L Chloride 104 108 H (98-107) mmol/L Carbon Dioxide 26 26 (21-32) mmol/L BUN 31 H 28 H (6-23) mg/dl Creatinine 1.61 H 1.23 D (0.6-1.4) mg/dl Glucose 80 134 H (70-99(Fasting)) mg/dl Calcium 8.4 L 8.2 L (8.6-10.3) mg/dl AST 10 L 10 L (13-39) U/L ALT 9 8 (7-52) U/L Alkaline Phosphatase 57 59 (34-104) U/L Total Protein 6.2 5.6 L (6.0-8.3) gm/dl Albumin 4.0 3.6 (3.4-5.0) gm/dl Intake and Output 04/27/25 04/28/25 04/28/25 22:59 06:59 14:59 Intake Total 843.333 / 1109.000 265.667 / 1109.000 994.667 / 994.667 Balance 843.333 / 1109.000 265.667 / 1109.000 994.667 / 994.667 Intake: IV 693.333 / 859.000 165.667 / 859.000 994.667 / 994.667 D5w and Nss 1,000 ml @ 80 mls/ 994.667 / 994.667 hr IV .[id number] [facility] Rx#:[id number] Heparin 43649 Unit/500 ml D5w 165.667 / 165.667 25,000 units In 500 ml @ 1,000 UNITS/HR 20 mls/hr IV .Q24H [facility] Rx#:[id number] Magnesium Sulfate / D5w 1 gm In 193.333 / 193.333 100 ml @ 100 mls/hr IV Q1H [facility] Rx#:[id number] Sodium Chloride 0.9% 500 ml @ 500 / 500 999 mls/hr IV .Q31M ONE Rx#: [id number] Oral 150 / 250 100 / 250 Other: # Unmeasured Voids 1 1 Weight 116.8 kg 116.7 kg Weight Measurement Method Built in [facility] Diagnostic Findings Admission EKG: Atrial fibrillation with a ventricular rate of 63 bpm. Old inferior infarct. Cannot rule out an old anterior infarct. QTc 427 ms. Medications Administered Current Inpatient Medications Acetaminophen (Acetaminophen 325 Mg Tab) 650 mg PO Q4H PRN PRN Reason: Pain or Fever Stop: 05/27/25 21:54 Last Admin: 04/28/25 08:58 Dose: 650 mg Aspirin (Aspirin 81 Mg Ectab) 81 mg PO DAILY [facility] Stop: 05/28/25 08:59 Last Admin: 04/28/25 09:04 Dose: 81 mg Atorvastatin Calcium (Atorvastatin 40 Mg Tab) 80 mg PO QAM [facility] Stop: 05/28/25 08:59 Last Admin: 04/28/25 09:03 Dose: 80 mg Bupropion HCl (Bupropion Sr 100 Mg Tabcr) 100 mg PO BID [facility] Stop: 05/28/25 08:59 Last Admin: 04/28/25 09:04 Dose: 100 mg Dextrose (Dextrose 50% 50 Ml Syringe) 25 - 50 ml IV UD PRN; Protocol PRN Reason: Hypoglycemia Protocol Stop: 05/27/25 20:48 Duloxetine HCl (Duloxetine Hcl 30 Mg Cap) 30 mg PO BID [facility] Stop: 05/28/25 08:59 Last Admin: 04/28/25 09:02 Dose: 30 mg Ferrous Sulfate (Ferrous Sulfate 325 Mg Tab) 325 mg PO Q48H [facility] Stop: 05/28/25 08:59 Last Admin: 04/28/25 09:01 Dose: 325 mg Gabapentin (Gabapentin 300 Mg Cap) 600 mg PO HS [facility] Stop: 05/27/25 21:29 Last Admin: 04/27/25 23:29 Dose: 600 mg Gabapentin (Gabapentin 300 Mg Cap) 300 mg PO DAILY@0900,1200 [facility] Stop: 05/28/25 08:59 Last Admin: 04/28/25 09:01 Dose: 300 mg Glucagon (Glucagon For Inj 1 Mg Vial) 1 mg SQ UD PRN; Protocol PRN Reason: Hypoglycemia Protocol Stop: 05/27/25 20:48 Glucose (Glucose 40% Gel 15 Gm Tube) 15 - 30 gm PO UD PRN; Protocol PRN Reason: Hypoglycemia Protocol Stop: 05/27/25 20:48 Glucose (Glucose 10 Tab/Tube) 4 - 8 tab PO UD PRN; Protocol PRN Reason: Hypoglycemia Protocol Stop: 05/27/25 20:48 Dextrose/Sodium Chloride (D5w And Nss) 1,000 mls @ 80 mls/hr IV .[id number] [facility] Stop: 04/30/25 18:29 Last Admin: 04/28/25 07:26 Dose: 80 mls/hr Heparin Sodium/Dextrose (Heparin 70649 Unit/500 Ml D5w) 25,000 units in 500 mls @ 22 mls/hr IV .[id number] [facility]; Protocol Stop: 05/27/25 21:29 Last Titration: 04/28/25 06:50 Dose: 1,100 units/hr, 22 mls/hr Magnesium Sulfate/Dextrose (Magnesium Sulfate / D5w) 1 gm in 100 mls @ 50 mls/hr IV Q2H [facility] Stop: 04/28/25 11:59 Last Admin: 04/28/25 09:04 Dose: 50 mls/hr Insulin Aspart (Insulin Aspart Per Unit Charge) 0 units SC ACHS [facility] Stop: 05/27/25 20:59 Last Admin: 04/28/25 09:00 Dose: 6 units Levothyroxine Sodium (Levothyroxine Sodium 25 Mcg Tablet) 25 mcg PO DAILYBB [facility] Stop: 05/28/25 06:29 Last Admin: 04/28/25 05:50 Dose: 25 mcg Magnesium Hydroxide (Magnesium Hydroxide Susp 30 Ml Udc) 30 ml PO Q12H PRN PRN Reason: Constipation Stop: 05/27/25 21:54 Magnesium Oxide (Magnesium Oxide 400 Mg Tab) 400 mg PO BID [facility] Stop: 05/28/25 08:59 Last Admin: 04/28/25 09:00 Dose: 400 mg Metoprolol Tartrate (Metoprolol Tartrate 1 Mg/Ml Vial) 5 mg IV Q4H PRN PRN Reason: HR>110 Stop: 05/27/25 21:24 Miscellaneous (Carbohydrates For Hypoglycemia ) 15 - 30 gm PO UD PRN PRN Reason: Hypoglycemia Protocol Stop: 05/27/25 20:48 Miscellaneous Information (Pharmacy Glycemic Mgmt Consult) 1 each N/A UD PRN PRN Reason: Consult Stop: 05/27/25 20:48 Multivitamins (Multivitamin Tab) 1 tab PO DAILY [facility] Stop: 05/28/25 08:59 Last Admin: 04/28/25 09:02 Dose: 1 tab Ondansetron HCl (Ondansetron Inj 2 Mg/Ml 2 Ml Vial) 4 mg IV Q6H PRN PRN Reason: Nausea Stop: 05/27/25 21:54 Pantoprazole Sodium (Pantoprazole 40 Mg Tab) 40 mg PO QAM [facility] Stop: 05/28/25 08:59 Last Admin: 04/28/25 09:01 Dose: 40 mg Polyethylene Glycol (Polyethylene (Miralax) 17 Gm Pack) 17 gm PO DAILY PRN PRN Reason: Constipation Stop: 05/27/25 21:54 Tamsulosin HCl (Tamsulosin Hcl 0.4 Mg Cap) 0.8 mg PO QAM [facility] Stop: 05/28/25 08:59 Last Admin: 04/28/25 09:02 Dose: 0.8 mg Vitamin D (Cholecalciferol 25 Mcg (1000 Units) Tab) 50 mcg PO DAILY [facility] Stop: 05/28/25 08:59 Last Admin: 04/28/25 09:00 Dose: 50 mcg PG Care Time/CCT Total # of Minutes Spent Total Time Spent with Patient: Total time spent is greater than 50% in coordination of care (as documented) at patient's floor/unit and/or counseling patient: Coding Level of Care Code 04807 IN/OBS CONSULT LVL 5,80M Diagnoses Atrial fibrillation, new onset I48.91 ASCVD (arteriosclerotic cardiovascular disease) I25.10 S/P CABG x 5 Z95.1 Dyslipidemia, goal LDL below 70 E78.5 Orthostatic hypotension I95.1
--- NOTE | 2025-04-28 08:43 | Hospitalist Progress Note ---
Date of Service April 28, 2025 Assessment & Plan (1) Atrial fibrillation, new onset: (2) Orthostatic hypotension: (3) CARMEN (acute kidney injury): (4) Hypomagnesemia: (5) Hypoglycemia: (6) Type 2 diabetes mellitus: (7) Dyslipidemia, goal LDL below 70: (8) Coronary artery disease: (9) GERD (gastroesophageal reflux disease): (10) BPH (benign prostatic hyperplasia): (11) Depression: Plan 64 year old male with PMH significant for severe CAD s/p CABG x 5 (Rangel-LAD, Ao-OM1-OM2, Ao-PDA, Ao-Ramus) in March 2017, HLD, HTN, orthostatic hypotension, symptomatic bradycardia, sinus node dysfunction, obesity, type II DM with diabetic nephropathy, diabetic proliferative retinopathy and macular edema both eyes, hypothyroidism, GERD, BPH, cerebral atrophy, depression/CHANTEL, history of osteomyelitis, history of left lesser toe amputation who presented to the ED on 04/27/2025 via EMS with symptomatic hypotension during his outpatient ophthalmology appointment and is admitted for new onset A fib. New-onset atrial fibrillation Admitting EKG revealed A fib at a rate of 63bpm [id number] score = [address] negative (obtained due to recent fall with head strike) Echo revealed EF 55-60%, small sized inferior wall motion abnormality with akinesis of segments, left atrial enlargement, abnormal LV diastolic dysfunction, no significant valvular disease Monitor on telemetry Cardiology consulted and recommending: * Outpatient ziopatch * Eliquis 5mg BID - Heparin drip to stop at 2100 and Eliquis to start at 2100 * K>4.5-5, Mag>2 * Follow up with Dr Quijano at [facility] Orthostatic hypotension BPs at ophthalmology appt yesterday were 86/52 and 73/55 and patient felt dizzy and lightheaded Follows with [facility] Cardiology for history of orthostatic hypotension Orthostatic vitals positive with drop from 123/68 to 67/48 Fall precautions Monitor BPs Discussed blood pressure management with Ran Morrow via TT on 04/28 and he recommends: * Decrease tamsulosin from 0.8mg to 0.4mg * Decrease amlodipine from 5mg to 2.5mg * Decrease losartan from 50mg to 25mg CARMEN, resolved Diabetic nephropathy Cr 1.61 on admission, eGFR 47 Baseline Cr 1.3-1.4 since 05/2024 per OP chart review Suspect related to dehydration Cr improved to 1.23 after IVF administration Monitor BMP Hypomagnesemia Mag 1.5 this morning Oral supplementation started on admission Goal Mag >2 with new onset A fib Monitor and replete Hypoglycemia DM type II Admitting BSG 59 BSG improving with D5 NSS - will dc D5 today and monitor BSG ACHS Hold home regimen; SSI while inpt Glycemic pharmacy consulted clinical informatics educator consult given hypoglycemia A1C 6.4% Hyperlipidemia CAD s/p CABG x 5 Continue statin and baby aspirin Depression Continue Wellbutrin and Cymbalta Chronic anemia Hgb stable on admission Baseline Hgb 10-12 Monitor CBC Hypothyroidism TSH WNL Continue levothyroxine GERD Continue PPI BPH Continue Flomax at reduced dose per Cardiology DVT Prophylaxis: Heparin gtt Code Status: FULL CODE PCP: Sha Andersen Disposition: potential dc tomorrow; PT recommending return home; CM to arrange transportation if patient's sister Olive ([phone]) cannot provide ride Patient's sister, Sophia, updated via phone and all questions/concerns addressed Patient seen in collaboration with Dr. Amos. Please see addendum. I spent a total of 60 minutes coordinating, documenting and providing care for this patient excluding time spent in the performance of separately billed services or time spent by another provider/QHP. Admission and Anticipated Discharge Date Admission Date: April 27, 2025 Supervising Physician Co-Signing Physician Notes Patient seen and examined Agree with findings and plans as detailed by Silvana MAXWELL Subjective Patient seen sitting up in the chair Just completed PT and reports it went well Denies dizziness, chest pain, palpitations, SOB, abdominal pain, N/V/D, weakness Review of Systems Review of Systems: All systems reviewed & are unremarkable except as noted in Subjective Physical Exam Physical Exam: General/Psych: WD/WN, sitting up in bed, NAD, conversing easily Head: normocephalic, atraumatic Eyes: normal inspection, PERRL, conjunctivae pink ENT: external ear and nose normal, oropharynx normal Neck: normal visual inspection, trachea midline Respiratory: normal respiratory effort, lungs clear to auscultation, no wheeze/rales/rhonchi, no accessory muscle use Cardiovascular: regular rate and rhythm, no murmur/rub/gallop, no JVD Extremities: no cyanosis or clubbing, normal peripheral pulses, no BLE edema Abdomen/GI: normal bowel sounds, soft, nontender Neurologic/MSK: A+Ox3, motor strength 5/5, moves all extremities Skin: no rashes, normal color, warm and dry Results & Data Results & Data Vital Signs (Past 12 Hours) Vital Signs Temp Pulse Pulse Resp BP Pulse Ox O2 Del Method 04/28/25 08:07 36.5 C 76 20 116/70 96 Room Air 04/28/25 01:36 36.5 C 76 18 123/68 96 Room Air 04/27/25 22:52 70 04/27/25 22:00 36.4 C L 85 18 140/75 96 Room Air 04/27/25 21:42 Room Air 04/27/25 20:40 71 Laboratory Results Short CBC 04/27/25 04/28/25 Range/Units 16:22 05:32 WBC 6.93 6.55 (4.8-10.8) K/ul Hgb 11.4 L 10.9 L (14.0-18.0) g/dl Hct 35.7 L 33.8 L (42.0-52.0) % Plt Count 203 185 (130-400) K/uL BMP 04/27/25 04/28/25 16:22 05:32 Sodium 137 139 Potassium 5.1 4.5 Chloride 104 108 H Carbon Dioxide 26 26 BUN 31 H 28 H Creatinine 1.61 H 1.23 D Glucose 80 134 H Calcium 8.4 L 8.2 L Liver Function 04/27/25 04/28/25 Range/Units 16:22 05:32 Total Bilirubin 0.4 0.3 (0.2-1.0) mg/dl AST 10 L 10 L (13-39) U/L ALT 9 8 (7-52) U/L Alkaline Phosphatase 57 59 (34-104) U/L Albumin 4.0 3.6 (3.4-5.0) gm/dl Urine 04/27/25 Range/Units 20:14 Urine Color Yellow Urine Appearance Clear (Clear) Urine pH 5.5 (4.5-7.5) Ur Specific [place] 1.008 (1.000-1.030) Urine Protein Negative (Negative) Urine Glucose (UA) Negative (Negative) I have independently reviewed and interpreted patient's labs including CBC, CMP. Medications Administered Current Inpatient Medications Acetaminophen (Acetaminophen 325 Mg Tab) 650 mg PO Q4H PRN PRN Reason: Pain or Fever Stop: 05/27/25 21:54 Aspirin (Aspirin 81 Mg Ectab) 81 mg PO DAILY [facility] Stop: 05/28/25 08:59 Atorvastatin Calcium (Atorvastatin 40 Mg Tab) 80 mg PO QAM [facility] Stop: 05/28/25 08:59 Bupropion HCl (Bupropion Sr 100 Mg Tabcr) 100 mg PO BID [facility] Stop: 05/28/25 08:59 Dextrose (Dextrose 50% 50 Ml Syringe) 25 - 50 ml IV UD PRN; Protocol PRN Reason: Hypoglycemia Protocol Stop: 05/27/25 20:48 Duloxetine HCl (Duloxetine Hcl 30 Mg Cap) 30 mg PO BID [facility] Stop: 05/28/25 08:59 Ferrous Sulfate (Ferrous Sulfate 325 Mg Tab) 325 mg PO Q48H [facility] Stop: 05/28/25 08:59 Gabapentin (Gabapentin 300 Mg Cap) 600 mg PO HS [facility] Stop: 05/27/25 21:29 Last Admin: 04/27/25 23:29 Dose: 600 mg Gabapentin (Gabapentin 300 Mg Cap) 300 mg PO DAILY@0900,1200 [facility] Stop: 05/28/25 08:59 Glucagon (Glucagon For Inj 1 Mg Vial) 1 mg SQ UD PRN; Protocol PRN Reason: Hypoglycemia Protocol Stop: 05/27/25 20:48 Glucose (Glucose 40% Gel 15 Gm Tube) 15 - 30 gm PO UD PRN; Protocol PRN Reason: Hypoglycemia Protocol Stop: 05/27/25 20:48 Glucose (Glucose 10 Tab/Tube) 4 - 8 tab PO UD PRN; Protocol PRN Reason: Hypoglycemia Protocol Stop: 05/27/25 20:48 Dextrose/Sodium Chloride (D5w And Nss) 1,000 mls @ 80 mls/hr IV .[id number] [facility] Stop: 04/30/25 18:29 Last Admin: 04/28/25 07:26 Dose: 80 mls/hr Heparin Sodium/Dextrose (Heparin 27617 Unit/500 Ml D5w) 25,000 units in 500 mls @ 22 mls/hr IV .[id number] [facility]; Protocol Stop: 05/27/25 21:29 Last Titration: 04/28/25 06:50 Dose: 1,100 units/hr, 22 mls/hr Magnesium Sulfate/Dextrose (Magnesium Sulfate / D5w) 1 gm in 100 mls @ 50 mls/hr IV Q2H [facility] Stop: 04/28/25 11:59 Insulin Aspart (Insulin Aspart Per Unit Charge) 0 units SC ACHS [facility] Stop: 05/27/25 20:59 Last Admin: 04/27/25 22:47 Dose: 4 units Insulin Glargine (Lantus Per Unit Charge) 10 units SC DAILY [facility] Stop: 04/28/25 09:01 Levothyroxine Sodium (Levothyroxine Sodium 25 Mcg Tablet) 25 mcg PO DAILYBB [facility] Stop: 05/28/25 06:29 Last Admin: 04/28/25 05:50 Dose: 25 mcg Magnesium Hydroxide (Magnesium Hydroxide Susp 30 Ml Udc) 30 ml PO Q12H PRN PRN Reason: Constipation Stop: 05/27/25 21:54 Magnesium Oxide (Magnesium Oxide 400 Mg Tab) 400 mg PO BID [facility] Stop: 05/28/25 08:59 Metoprolol Tartrate (Metoprolol Tartrate 1 Mg/Ml Vial) 5 mg IV Q4H PRN PRN Reason: HR>110 Stop: 05/27/25 21:24 Miscellaneous (Carbohydrates For Hypoglycemia ) 15 - 30 gm PO UD PRN PRN Reason: Hypoglycemia Protocol Stop: 05/27/25 20:48 Miscellaneous Information (Pharmacy Glycemic Mgmt Consult) 1 each N/A UD PRN PRN Reason: Consult Stop: 05/27/25 20:48 Multivitamins (Multivitamin Tab) 1 tab PO DAILY [facility] Stop: 05/28/25 08:59 Ondansetron HCl (Ondansetron Inj 2 Mg/Ml 2 Ml Vial) 4 mg IV Q6H PRN PRN Reason: Nausea Stop: 05/27/25 21:54 Pantoprazole Sodium (Pantoprazole 40 Mg Tab) 40 mg PO QAM [facility] Stop: 05/28/25 08:59 Polyethylene Glycol (Polyethylene (Miralax) 17 Gm Pack) 17 gm PO DAILY PRN PRN Reason: Constipation Stop: 05/27/25 21:54 Tamsulosin HCl (Tamsulosin Hcl 0.4 Mg Cap) 0.8 mg PO QAM [facility] Stop: 05/28/25 08:59 Vitamin D (Cholecalciferol 25 Mcg (1000 Units) Tab) 50 mcg PO DAILY [facility] Stop: 05/28/25 08:59
[2025-04-28] MEDS: Heparin IV Adult Wt-Based Low-Dose *NO* INITIAL Bolus Protocol IV SCH (08:47)
[2025-04-28] MEDS: ACETAMINOPHEN 325 MG TAB PO PRN (08:58)
[2025-04-28] MEDS: MAGNESIUM OXIDE 400 MG TAB PO SCH (09:00)
[2025-04-28] MEDS: CHOLECALCIFEROL 25 MCG (1000 UNITS) TAB PO SCH (09:00)
[2025-04-28] MEDS: LANTUS PER UNIT CHARGE SC SCH (09:01)
[2025-04-28] MEDS: FERROUS SULFATE 325 MG TAB PO SCH (09:01)
[2025-04-28] MEDS: GABAPENTIN 300 MG CAP PO SCH (09:01)
[2025-04-28] MEDS: TAMSULOSIN HCL 0.4 MG CAP PO SCH (09:02)
[2025-04-28] MEDS: MULTIVITAMIN TAB PO SCH (09:02)
[2025-04-28] MEDS: ATORVASTATIN 40 MG TAB PO SCH (09:03)
[2025-04-28] MEDS: MAGNESIUM SULFATE / D5W 1 GM/100 ML BAG IV SCH (09:04)
[2025-04-28] MEDS: ASPIRIN 81 MG ECTAB PO SCH (09:04)
--- NOTE | 2025-04-28 09:25 | Pharmacy Report ---
Pharmacy Glycemic Short Note 2 - Date of Service April 28, 2025 - Glycemic Short BSG Results (Last 24 hours): 04/27/25 04/27/25 04/27/25 16:22 17:42 20:25 Glucose 80 POC Glucose 59 L* 105 H 04/27/25 04/28/25 04/28/25 21:57 05:32 07:35 Glucose 134 H POC Glucose 122 H 143 H OUTPATIENT ANTIDIABETIC REGIMEN: * Lantus 22 units SC qAM * Novolog 8 units SC TIDM + SSI * Metformin 1 g PO BIDM HbA1c: 6.4% (04/28/25) ASSESSMENT: * DW is a 64 year old male who presented to ED last evening for evaluation of dizziness * Pertinent PMH includes new-onset atrial fibrillation, history of orthostatic hypotension, T2DM, CARMEN/CKD, and CAD w/ hx CABG * POC Blood sugar of 59 mg/dL on presentation * Well-controlled T2DM as an outpatient w/ insulin and metformin * Diet is ordered, D5W/NSS @80 mL/hr now discontinued. Heparin infusion (mixed in dextrose). * Pharmacy consulted for glycemic management PLAN FOR INPATIENT GLYCEMIC CONTROL: * Hold outpatient oral diabetes medications * Basal insulin * Lantus 10 units SC daily * Bolus insulin * NovoLog per scale ACHS or Q6hrs while NPO * Goal Range: Low 120 mg/dL - High 160 mg/dL * Correction Factor: 30 mg/dL/unit * Nutritional / Prandial insulin per carb ratio of 1 unit per 10 grams CHO consumed
[2025-04-28] MEDS ORDERED: TAMSULOSIN HCL 0.4 MG CAP PO SCH (12:56)
[2025-04-28 13:21] LABS: ANTI-Xa, UFH(UnfractionatedHep 0.26 IU/ml (0.3-0.7)
[2025-04-28 19:33] VITALS: RESP 18
[2025-04-28] MEDS: HEPARIN DRIP - STOP ORDER ONE (20:48)
[2025-04-28] MEDS: APIXABAN 5 MG TABLET PO SCH (20:53)
[2025-04-29 02:57] VITALS: PULSE 71; O2SAT 96
[2025-04-29] MEDS: LOSARTAN POTASSIUM 25 MG TAB PO SCH (07:33)
[2025-04-29] MEDS: TAMSULOSIN HCL 0.4 MG CAP PO SCH (07:33)
[2025-04-29 07:59] LABS: Hematocrit (blood only) 34.9 % (42.0-52.0); Hemoglobin 11.3 g/dl (14.0-18.0); Mean Corpuscular Hemoglobin 28.5 pg (25.0-34.0); Mean Corpuscular Volume 87.9 fL (80.0-100.0); Platelet Count 179 K/uL (130-400); RDW Standard Deviation 44.8 fL (36.4-46.3); Red Blood Count 3.97 M/uL (4.70-6.10); White Blood Count 5.97 K/ul (4.8-10.8)
[2025-04-29 08:15] LABS: Anion Gap 6.0 (3-11); Blood Urea Nitrogen 25.0 mg/dl (6-23); Calcium 8.5 mg/dl (8.6-10.3); Carbon Dioxide 27.0 mmol/L (21-32); Chloride 108.0 mmol/L (98-107); Creatinine Clr Calc Pharmacy 82.4 ml/min; Glucose 87.0 mg/dl (70-99(Fasting)); Magnesium 1.7 mg/dl (1.7-2.4); Potassium 4.3 mmol/L (3.5-5.1); Sodium 141.0 mmol/L (136-145)
--- NOTE | 2025-04-29 10:06 | Discharge Summary ---
Discharge Summary Date of Service April 29, 2025 Principal Dx & Hospital Course #1 = Principal Diagnosis (1) Atrial fibrillation, new onset: (2) Orthostatic hypotension: (3) CARMEN (acute kidney injury): (4) Hypoglycemia: Plan Patient is a 64-year-old male with PMHx significant for severe CAD s/p CABG x 5 (Rangel-LAD, Ao-OM1-OM2, Ao-PDA, Ao-Ramus) in March 2017, HLD, HTN, orthostatic hypotension, symptomatic bradycardia, sinus node dysfunction, obesity, type II DM with diabetic nephropathy, diabetic proliferative retinopathy and macular edema both eyes, hypothyroidism, GERD, BPH, cerebral atrophy, depression/CHANTEL, history of osteomyelitis, history of left lesser toe amputation and other problems as outlined below who presented to the ED via EMS on 04/27/25 due to symptomatic hypotension during an outpatient ophthalmology appointment and was subsequently admitted for new-onset atrial fibrillation. #New-onset atrial fibrillation Admitting EKG: atrial fibrillation, rate-controlled at 63bpm [id number] score = [address] negative (obtained 2/2 recent fall with head strike) TTE: EF 55-60%, small sized inferior wall motion abnormality with akinesis of segments, left atrial enlargement, abnormal LV diastolic dysfunction, no significant valvular disease Cardiology consulted and recommended the following: -Outpatient Zio patch monitoring; suspect patient may need pacer -Eliquis 5mg BID (pt provided with Eliquis coupon), continue ASA; IV heparin drip discontinued on 04/28 -Routine OP cardiology f/u with Dr. Quijano at [facility] #Orthostatic hypotension BP checked at OP ophthalmology appt on 04/27: 86/52 in the R arm, 73/55 in the L arm F/w [facility] cardiology given significant history of orthostatic hypotension, CAD s/p CABG x 5 Positive orthostatics during admission from 123/68 sitting to 67/48 standing --> likely related to hypovolemia 2/2 recent diarrhea, decrease po intake Previous provider discussed blood pressure management with Ran Morrow PA-C via TT on 04/28 and he recommended the following: -Decrease tamsulosin from 0.8mg to 0.4mg -Decrease amlodipine from 5mg to 2.5mg -Decrease losartan from 50mg to 25mg BP gradually improved with above measures; pt educated on importance of keeping BP log at home #CARMEN superimposed on 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 -Pt agreeable with lowering Lantus dose; previously on 22U daily. Can resume home diabetic regimen on discharge as otherwise outlined #Hypomagnesemia Mag level improved Continue oral mag supplementation on discharge #HLD #CAD s/p CABG x 5 (Rangel-LAD, Ao-OM1-OM2, Ao-PDA, Ao-Ramus) in March 2017 Continue statin, ASA #Depression Continue Wellbutrin, Cymbalta #Chronic anemia Baseline Hgb 10-12 Hgb remained stable during admission #Hypothyroidism TSH WNL Continue levothyroxine #GERD Continue PPI #BPH Continue Flomax at reduced dose, as per above PCP: Sha Andersen MD Disposition: Pt is being discharged home in stable condition with close PCP f/u, cardiology f/u Patient seen in collaboration with Dr. Ga. Please see addendum. I spent a total of 60 minutes coordinating, documenting, and providing care for this patient excluding time spent in the performance of separately billed services or time spent by another provider/QHP. This included personally reviewing all current laboratories and imaging studies, medical reconciliation, outpatient chart review and discussion with specialists. This chart was completed in part utilizing Speech Voice Recognition Software. Grammatical errors, random word insertions, pronoun errors, and incomplete sentences are an occasional consequence of this system due to software limitations, ambient noise, and hardware issues. Any formal questions or concerns about the content, text, or information contained within the body of this dictation should be directly addressed to the provider for clarification. Notes For Next Care Provider Need to arrange Zio patch monitoring and routine cardiology follow-up appointment with Dr. Quijano. Medication Changes From Visit Eliquis 5mg BID Tamsulosin dose decreased from 0.8mg to 0.4mg daily Amlodipine dose decreased from 5mg to 2.5mg daily Losartan dose decreased from 50mg to 25mg daily Lantus dose decreased from 22U daily to 18U daily Admission HPI Per Admitting Provider Patient is a 64-year-old male with past medical history significant for severe CAD s/p CABG x 5 (Rangel-LAD, Ao-OM1-OM2, Ao-PDA, Ao-Ramus) in March 2017, HLD, HTN, orthostatic hypotension, symptomatic bradycardia, sinus node dysfunction, obesity, type II DM with diabetic nephropathy, diabetic proliferative retinopathy and macular edema both eyes, hypothyroidism, chronic rhinitis, mucous retention cyst of maxillary sinus, GERD, BPH, cerebral atrophy, history of left lesser toe amputation, depression/CHANTEL, history of osteomyelitis and other problems as outlined below who presented to the ED via EMS with complaint of lightheadedness and dizziness after his BP was discovered to be 86/52 during his outpatient ophthalmology appointment earlier today. History obtained from the patient, discussion with ED provider and associated chart review. Patient seen at bedside with Dr. Storey. Patient endorses feeling well up until this afternoon at his ophthalmology appointment. He describes feeling lightheaded and dizzy upon getting out of his car at the appointment. He had his BP checked at the office and it was notably low at 86/52 in the right arm and 73/55 in the left arm. He does mention proceeding with his eye exam and having his pupils dilated; however, his symptoms did not resolve therefore a call was placed to his PCP's office whom subsequently referred him to the ED. States his lightheadedness and dizziness is improving with rest in the ED. He admits to actually experiencing some lightheadedness and dizziness for the past 2 days, worse with standing. He reports a fall approximately 2 weeks ago where he struck his head off of a stone flower bed. No reported LOC; states he tripped over something in his yard. Patient was not evaluated in any medical facilities following this event. He reports having some diarrhea a few days ago however this is now resolved. Denies any cough, congestion, fevers, SOB, chest pain, abdominal pain or urinary/bowel habit changes. He mentions he typically does not eat much in the morning or afternoon and that the majority of his heavier meals are later in the evening. He administered his long-acting insulin this morning. Admits to not taking any short-acting insulin today. States he only ate a couple crackers prior to his ophthalmology appointment and nothing else today. He took all of his medications this morning, including his antihypertensives - losartan 25mg and amlodipine 5mg. Follows with [facility] cardiology - primary forging die finisher is Dr. Quijano. Significant history of CAD s/p CABG x 5. Also history of orthostatic hypotension previously requiring frequent changes in his antihypertensive regimen. Admission Exam Per Admitting Provider oriented x3, not in distress, speaks in sentences with no effort nor accessory muscle use normal rate, irregularly regular rhythm, no murmurs clear breath sounds bilaterally non distended, soft, nontender no bipedal edema, erythema, warmth no neuro deficits Discharge Exam General/Psych: WD/WN, laying down in bed, NAD, conversing easily Head: normocephalic, atraumatic Eyes: normal inspection, PERRL, conjunctivae pink ENT: external ear and nose normal, oropharynx moist Neck: normal visual inspection, trachea midline Respiratory: normal respiratory effort, CTAB, no wheeze/rales/rhonchi, no accessory muscle use Cardiovascular: regular rate, irregularly irregular rhythm, no murmur/rub/gallop Extremities: no cyanosis or clubbing, normal peripheral pulses, no BLE edema Abdomen/GI: normal bowel sounds, soft, nontender Neurologic/MSK: A+Ox3, motor strength 5/5, actively moves all extremities Skin: no rashes, normal color, warm and dry Updated Medication List Medication Instructions Recorded Confirmed Type acetaminophen 500 mg tablet 1,000 mg PO Q6H PRN Pain 01/13/19 04/28/25 History albuterol sulfate 90 mcg/actuation 2 puff inhalation Q6H PRN 04/27/25 04/28/25 History aerosol inhaler Shortness Of Breath Or Wheezing aspirin 81 mg tablet,delayed 81 mg PO DAILY 04/27/25 04/28/25 History release atorvastatin 80 mg tablet 80 mg PO QAM 04/27/25 04/28/25 History bupropion HCl 100 mg tablet,12 hr 100 mg PO BID 04/27/25 04/28/25 History sustained-release cholecalciferol (vitamin D3) 50 50 mcg PO DAILY 04/27/25 04/28/25 History mcg (2,000 unit) capsule (Vitamin D3) duloxetine 30 mg capsule,delayed 30 mg PO BID 04/27/25 04/28/25 History release ferrous sulfate 325 mg (65 mg 325 mg PO Q OTHER DAY 04/27/25 04/28/25 History iron) tablet gabapentin 300 mg capsule See Rx Instructions .Route .COMPLEX 04/27/25 04/28/25 History insulin aspart U-100 100 unit/mL 8 unit subcut TIDM 04/27/25 04/28/25 History (3 mL) subcutaneous pen levothyroxine 25 mcg tablet 25 mcg PO DAILYBB 04/27/25 04/28/25 History metformin 500 mg tablet,extended 1,000 mg PO BID 04/27/25 04/28/25 History release 24 hr multivitamin 1 tab PO DAILY 04/27/25 04/28/25 History naphazo HCl 0.025 %-hyprome 0.2 1 drp OPB DIRECTED PRN Dry Eyes 04/27/25 04/28/25 History %-ps 80 0.5 %-Zn sulf 0.25 % eye drops (Clear Eyes Complete) nitroglycerin 0.4 mg sublingual 0.4 mg sublingual DIRECTED PRN 04/27/25 04/28/25 History tablet (Nitrostat) Chest Pain omeprazole 20 mg capsule,delayed 20 mg PO QAM 04/27/25 04/28/25 History release amlodipine 5 mg tablet 2.5 mg (1/2 x 5 mg) PO QAM #30 tabs 04/29/25 Rx apixaban 5 mg tablet (Eliquis) 5 mg PO BID #60 tabs 04/29/25 Rx insulin glargine 100 unit/mL (3 18 unit (0.18 mL) subcut QAM #0 mL 04/29/25 04/28/25 Rx mL) subcutaneous pen (Lantus Solostar U-100 Insulin) losartan 25 mg tablet 25 mg PO QAM #30 tabs 04/29/25 Rx magnesium oxide 400 mg (241.3 mg 400 mg PO BID #60 tabs 04/29/25 Rx magnesium) tablet tamsulosin 0.4 mg capsule 0.4 mg PO QAM #30 caps 04/29/25 Rx Hospital Stay Data Consultations 04/27/25 18:03 ED Decision to Admit Stat Diagnostic Imagining Performed 04/27/25 19:[address] [CT head/brain wo con] Stat Discharge Instructions Given to Patient (Per Discharging Provider) Please attend your primary care provider (PCP) hospital discharge follow-up appointment as outlined below. Date & Time: 05/05/2025 @ 3:20 PM Provider: Saundra Decker MD Location: [facility] It is very important that you attend this appointment. You need to have a wearable heart monitor arranged to monitor you heart rhythm for several days given your next diagnosis of atrial fibrillation. This device will help track and detect any irregular heart rhythms. You will need to have an outpatient follow-up appointment arranged with your primary forging die finisher within the next 1-2 weeks. MEDICATION CHANGES: 1. Eliquis 5mg twice a day --> This is a blood thinner prescribed to patient with atrial fibrillation to reduce the risk of stroke and blood clots. You have been provided with a coupon to give to your pharmacy in order to get 1-month of this medication for FREE. 2. Tamsulosin (Flomax) dose decreased to 0.4mg once a day. 3. Losartan dose decreased to 25mg once a day. 4. Amlodipine dose decreased to 2.5mg once a day. 5. Insulin glargine (Lantus/long-acting) dose decreased to 18 units once a day. Please continue to follow the medication changes as outlined above. These prescriptions were sent to [facility] at [facility]. It would be beneficial for you to keep a log of your blood pressure readings at home, like we had discussed. Seek medical attention if you have: * temperature above 101F * chest pain or trouble breathing * abdominal pain, nausea, vomiting * diarrhea, dark stools or bloody stools * any unanswered questions or concerns Call 911 if symptoms are severe. Please take good care of yourself. It has been a pleasure taking care of you. If you have any questions regarding your recent hospitalization please contact [facility] and request a [facility] Hospitalist @ [phone]. Total Time Total Time Spent Total Time Spent (In Minutes): 60 Supervising Physician Co-Signing Physician Notes Patient seen and examined Agree with findings and plans as detailed by Katia Browning PA-C
[2025-04-29 10:57] VITALS: BP 148/69; TEMP 97.9
--- NOTE | 2025-04-30 20:35 | Electrocardiogram Report ---
Test Reason : Blood Pressure : */* mmHG Vent. Rate : 63 BPM Atrial Rate : * BPM P-R Int : * ms QRS Dur : 118 ms QT Int : 418 ms P-R-T Axes : * -7 -44 degrees QTcB Int : 427 ms Atrial fibrillation Inferior infarct , age undetermined Cannot rule out Anterior infarct , age undetermined Abnormal ECG No previous ECGs available Confirmed by Wale Maldonado ([id number]) on 04/30/2025 8:34:46 PM Referred By: REFERRED SELF Confirmed By: Wale Maldonado
== END 2025-04-29 12:38 | disposition home or self-care (01) | DRG 309 ==
LOC: ED 16:09 → SUATTDRO 20:49 → MERGE 20:49 → 2S 20:49